=== PATIENT | male | born 1945 | race Hispanic/Latino ===

== ENCOUNTER → 2019-06-04 | Outpatient (CLI) | payer OTHER | END | disposition home or self-care (01) | LOC: RAH 13:17 | PROVIDERS: ATTEND Internal Medicine Cardiovascular Disease | DX: I80.202 Phlebitis and thrombophlebitis of unspecified deep vessels of left lower extremity (principal); M79.662 Pain in left lower leg; I48.0 Paroxysmal atrial fibrillation; I10 Essential (primary) hypertension; I42.0 Dilated cardiomyopathy; Z79.01 Long term (current) use of anticoagulants; Z79.899 Other long term (current) drug therapy | CPT/HCPCS: 93971 ==

== ENCOUNTER 2020-02-18 13:03 | Inpatient (IN) | payer OTHER ==
[~2020-02-18] VITALS: Ht 162.6 cm; Wt 90.8 kg
[2020-02-18] VITALS (13 sets, daily range): BP systolic 84–170; BP diastolic 25–90
[~2020-02-18 13:03] MED LIST: ATROPINE SULFATE 0.1 MG/ML 10 ML SYG IVP ONE; EPINEPHRINE 0.1 MG/ML 10 ML SYG IVP ONE; ETOMIDATE 2 MG/ML 10 ML VIAL IVP ONE; SODIUM BICARB 8.4% 50ML SYRINGE IVP ONE
[2020-02-18 13:45] LABS: BASOPHILS % (AUTO) 0.2 % (0.0-5.0); EOSINOPHILS % (AUTO) 0.4 % (0.0-8.0); LYMPHOCYTES % (AUTO) 14.1 % (21.0-51.0); MEAN CORPUSCULAR HEMOGLOBIN 29.4 pg (27.0-33.0); MEAN CORPUSCULAR HGB CONC 29.3 g/dL (32.0-36.0); MEAN CORPUSCULAR VOLUME 100.6 fL (79-99); MONOCYTES % (AUTO) 10.2 % (3.0-13.0); NEUTROPHILS % (AUTO) 66.7 % (40.0-77.0); NUCLEATED RED BLOOD CELLS 20.6 % (0.0-0.19); PLATELET COUNT (AUTO) 278 K/uL (130-400); RED BLOOD CELL COUNT(AUTO) 1.63 MIL/uL (4.50-6.20); RED CELL DISTRIBUTION WIDTH 19.1 % (11.0-15.5); WHITE BLOOD COUNT (AUTO) 21.4 K/uL (4.8-10.8)
[2020-02-18] MEDS ORDERED: ZOSYN 3.375GM+NS 50ML 50 ML IV ONE ×2 (13:47→20:19)
[2020-02-18 13:56] LABS: HEMATOCRIT 16.4 % (42-54)
[2020-02-18 13:59] LABS: PARTIAL THROMBOPLASTIN TIME 64.4 SEC (26.3-35.5)
[2020-02-18] MEDS ORDERED: ALBUMIN (HUMAN) 25% 100 ML IV ONE (13:59)
[2020-02-18 14:07] LABS: ALBUMIN 2.5 g/dL (3.5-5.0); BILIRUBIN,TOTAL 1.5 mg/dL (0.2-1.0); CREATININE 3.4 mg/dL (0.5-1.5); POTASSIUM 4.6 mmol/L (3.5-5.1); TOTAL PROTEIN, SERUM 6.9 g/dL (6.0-8.3); TROPONIN I 0.38 ng/mL (0.00-0.06)
[2020-02-18 14:15] LABS: INR > 7.00 (0.85-1.15); PROTHROMBIN TIME > 63.0 SEC (9.6-11.6)
[2020-02-18] MEDS ORDERED: CALCIUM GLUCONATE 1 GM/10 ML VIAL IV ONE (14:15)
[2020-02-18] MEDS ORDERED: SODIUM CHLORIDE 0.9% 100 ML IV ONE (14:20)
[2020-02-18] MEDS ORDERED: PHYTONADIONE 10 MG/1 ML AMP ONE ×3 (14:25→22:54)
[2020-02-18 14:50] LABS: LYMPHOCYTES % (MANUAL) 15 % (22-44); MONOCYTES % (MANUAL) 8 % (2-9); SEGMENTED NEUTROPHILS % 77 % (40-70)
[2020-02-18 14:51] LABS: MAN.DIFF COMMENT-IMPRESSION MANUAL DIFFERENTIAL; PLATELET MORPHOLOGY COMMENT ADEQUATE
[2020-02-18] MEDS ORDERED: METOPROLOL TARTRATE 1 MG/ML 5ML VIAL IV ONE (14:58)
[2020-02-18] MEDS: SODIUM CHLORIDE 0.9% 1000ML 1,000 ML IV SCH (15:15)
[2020-02-18 15:23] LABS: APPEARANCE,URINE Turbid (CLEAR); BILIRUBIN,URINE Negative (NEGATIVE); COLOR,URINE Dark Yellow (YELLOW); GLUCOSE, URINE (UA) TRACE mg/dL (NEGATIVE); KETONES,URINE Trace mg/dL (NEGATIVE); LEUKOCYTE ESTERASE ,URINE Small (NEGATIVE); NITRATE,URINE Negative (NEGATIVE); OCCULT BLOOD,URINE Small (NEGATIVE); PROTEIN,URINE POS 2+ mg/dL (NEGATIVE)
[2020-02-18 15:32] LABS: BACTERIA,URINE Moderate /HPF (None Seen); MUCUS,URINE Few LPF (None Seen); SPERM,URINE Few /HPF (None Seen); SQUAMOUS EPITHELIAL CELL,UR Moderate /HPF (0-2); TRANSITIONAL EPI CELLS,URINE Few /HPF (None Seen)
[2020-02-18] MEDS ORDERED: PANTOPRAZOLE 40 MG/VIAL IVP SCH (16:00)
[2020-02-18] MEDS ORDERED: FUROSEMIDE 10 MG/ML 4ML VIAL ONE (18:24)
[2020-02-18] MEDS ORDERED: FURO40TA5 PO (19:06)
[2020-02-18] MEDS ORDERED: LISI-617 PO (19:06)
[2020-02-18] MEDS ORDERED: WARF-57 PO (19:06)
[2020-02-18] MEDS ORDERED: GLIP5POW MC (19:06)
[2020-02-18] MEDS ORDERED: IBUP-2077 PO (19:06)
[2020-02-18] MEDS ORDERED: WARF2.5T85 PO (19:06)
[2020-02-18] MEDS ORDERED: METO-391 PO (19:06)
--- NOTE | 2020-02-18 19:30 | NUR ---
STATUS PT ASSESSED HE IS RESTLESS WITH LABORED BREATHING ENCOURAGED TO TAKE SLOW DEEP BREATHS. PT WAS GIVEN LASIX POST 2 UNITS PRBC. PENDING MORE BLOOD PRODUCTS. O2 SAT 98-100% ON 4LPM NASAL CANNULA SEE ASSESSMENT
--- NOTE | 2020-02-18 20:40 | NUR ---
DR. CASTILLO CHONG PAGED AT THIS TIME DUE TO INCREASED SHORTNESS OF BREATH AND RESTLESSNESS.
[2020-02-18] MEDS ORDERED: FUROSEMIDE 10 MG/ML 4ML VIAL IVP ONE (21:00)
--- NOTE | 2020-02-18 21:20 | NUR ---
DR. CASTILLO CHONG PAGED AGAIN PENDING CALL BACK.
--- NOTE | 2020-02-18 21:40 | NUR ---
DR. CASTILLO CHONG RETURNED CALL NEW ORDERS RECEIVED FOR BIPAP AND ABG. WILL CONTINUE TO MONITOR.
[2020-02-18] MEDS ORDERED: FUROSEMIDE 10 MG/ML 4ML VIAL IV PRN (21:45)
[2020-02-18 21:55] LABS: ABG BASE EXCESS -26.9 mmol/L (-2.0-3.0); ABG HCO3 4.8 mmol/L (21.0-28.0); ABG OXYGEN SATURATION 94.9 % (95.0-99.0); ABG PCO2 24 mmHg (35-48)
--- NOTE | 2020-02-18 22:00 | NUR ---
ABG RESULTS DR. CHONG CALLED AND GIVEN ABG RESULTS AT THIS TIME. NEW ORDERS RECEIVED FOR CRITICAL CARE CONSULT. PLACED ON BIPAP AT THIS TIME.
--- NOTE | 2020-02-18 22:10 | NUR ---
[facility] PAGED FOR CONSULT PENDING CALL BACK
--- NOTE | 2020-02-18 22:25 | NUR ---
CRITICAL CARE CRITICAL CARE PAGED AGAIN AT THIS TIME FOR CONSULT
[2020-02-18] MEDS ORDERED: NOREPINEPHRINE 4MG/NS 250ML 250 ML IV ONE (22:35)
[2020-02-18] MEDS ORDERED: SODIUM BICARB 50MEQ 50ML VIAL ONE (22:35)
[2020-02-18] MEDS ORDERED: FENTANYL 1000MCG+NS 100ML 100 ML ONE (22:35)
--- NOTE | 2020-02-18 22:35 | NUR ---
BETHANIE SOTO PRINT AND PATTERN DESIGNER CALLED NOTIFIED OF CONSULT AND GIVEN BREIF HISTORY AND LAB RESULTS. NEW ORDERS RECEIVED FOR ER TO INTUBATE AND MEDICATIONS TO BE ADMINISTERED SEE ORDERS.
--- NOTE | 2020-02-18 22:53 | NUR ---
ER DR. JHAVERI AT BEDSIDE FOR INTUBATION
[2020-02-18] MEDS ORDERED: OCTREOTIDE ACETATE 200 MCG/ML 5 ML VIAL ONE (22:55)
--- NOTE | 2020-02-18 22:57 | NUR ---
INTUBATION DURING INTUBATION ATTEMPT PT BECAME BRADYCARDIC 40'S AND GIVEN 0.5 MG ATROPINE. PT CONTINUED TO HAVE BRADYCARDIA 20-30'S GIVEN 1 AMP OF EPINEPHRINE. 2258- NO PULSE PT IN [facility] CPR STARTED AND CODE BLUE CALLED SEE CODE SHEET. 2301-PULSE 84. CODE WAS CLEARED AT 2307.
[2020-02-18] MEDS ORDERED: LACTATED RINGERS 1000ML 1,000 ML IV ONE (23:35)
--- NOTE | 2020-02-18 23:45 | NUR ---
FAMILY ATTEMPTED TO CALL FAMILY FROM PHONE NUMBER ON FACE SHEET GOES STRAIGHT TO VOICEMAIL AND MAIL BOX IS NOT SET UP
[2020-02-18] MEDS ORDERED: VASOPRESSIN 20 UNITS/ML 1ML VIAL ONE (23:46)
[2020-02-19] VITALS (65 sets, daily range): BP systolic 80–141; BP diastolic 12–80
[2020-02-19 00:20] LABS: ALBUMIN 3.3 g/dL (3.5-5.0); BILIRUBIN,TOTAL 2.9 mg/dL (0.2-1.0); CREATININE 4.2 mg/dL (0.5-1.5); INR 2.2 (0.85-1.15); PARTIAL THROMBOPLASTIN TIME 34.7 SEC (26.3-35.5); POTASSIUM 5.8 mmol/L (3.5-5.1); TOTAL PROTEIN, SERUM 7.4 g/dL (6.0-8.3)
[2020-02-19 00:21] LABS: CORRECTED WHITE BLOOD COUNT 20.5 K/uL (4.5-11.0); HEMATOCRIT 21.2 % (42-54); MEAN CORPUSCULAR HEMOGLOBIN 29.4 pg (27.0-33.0); MEAN CORPUSCULAR HGB CONC 29.2 g/dL (32.0-36.0); MEAN CORPUSCULAR VOLUME 100.5 fL (79-99); NUCLEATED RED BLOOD CELLS 39.2 % (0.0-0.19); RED BLOOD CELL COUNT(AUTO) 2.11 MIL/uL (4.50-6.20); RED CELL DISTRIBUTION WIDTH 19.5 % (11.0-15.5); WHITE BLOOD COUNT (AUTO) 28.5 K/uL (4.8-10.8)
[2020-02-19 00:22] LABS: ABG BASE EXCESS -24.2 mmol/L (-2.0-3.0); ABG HCO3 6.4 mmol/L (21.0-28.0); ABG OXYGEN SATURATION 99.3 % (95.0-99.0); ABG PCO2 28 mmHg (35-48)
[2020-02-19] MEDS ORDERED: SODIUM CHLORIDE 0.9% 500ML 500 ML IV ONE (00:42)
[2020-02-19] MEDS ORDERED: DEXTROSE 5%-WATER 1,000 ML IV ONE (01:14)
[2020-02-19] MEDS ORDERED: SODIUM BICARB 50MEQ 50ML VIAL ONE ×3 (01:14→04:53)
[2020-02-19] MEDS ORDERED: SODIUM BICARB 50MEQ 50ML VIAL IV ONE ×2 (01:15→04:45)
[2020-02-19] MEDS: SODIUM BICARB 8.4% 50ML SYRING 150 MEQ in DEXTROSE 5%-WATER 1,000 ML IV SCH ×5 (01:15→18:16)
[2020-02-19] MEDS: ZOSYN 3.375GM+NS 50ML 50 ML IV SCH ×2 (02:08→13:35)
[2020-02-19] MEDS: SODIUM CHLORIDE 0.9% 1000ML 1,000 ML IV SCH (03:01)
[2020-02-19 03:47] LABS: CORRECTED WHITE BLOOD COUNT 22.1 K/uL (4.5-11.0); HEMATOCRIT 30.8 % (42-54); MEAN CORPUSCULAR HEMOGLOBIN 30.7 pg (27.0-33.0); MEAN CORPUSCULAR HGB CONC 31.2 g/dL (32.0-36.0); MEAN CORPUSCULAR VOLUME 98.4 fL (79-99); NUCLEATED RED BLOOD CELLS 35.3 % (0.0-0.19); RED BLOOD CELL COUNT(AUTO) 3.13 MIL/uL (4.50-6.20); WHITE BLOOD COUNT (AUTO) 29.9 K/uL (4.8-10.8)
[2020-02-19 04:02] LABS: INR 2.48 (0.85-1.15); PROTHROMBIN TIME 25.9 SEC (9.6-11.6)
[2020-02-19 04:21] LABS: BILIRUBIN,TOTAL 4.3 mg/dL (0.2-1.0); CREATININE 4.2 mg/dL (0.5-1.5); TOTAL PROTEIN, SERUM 6.8 g/dL (6.0-8.3)
[2020-02-19] MEDS: INSULIN HUMULIN R 100 UNIT/ML 3ML IV SCH (04:45)
[2020-02-19] MEDS: CALCIUM GLUCONATE 1 GM/10 ML VIAL IV SCH (04:45)
[2020-02-19] MEDS: DEXTROSE 50%-WATER 25 GM/50 ML VIAL IV SCH (04:45)
[2020-02-19] MEDS ORDERED: INSULIN HUMULIN R 100 UNIT/ML 3ML ONE (04:51)
[2020-02-19] MEDS ORDERED: CALCIUM GLUCONATE 1 GM/10 ML VIAL IV ONE (04:51)
[2020-02-19] MEDS ORDERED: DEXTROSE 50%-WATER 25 GM/50 ML VIAL ONE (04:51)
[2020-02-19] MEDS ORDERED: FENTANYL CITRATE PF 0.05 MG/ML 1,000 MCG in SODIUM CHLORIDE 0.9% 100 ML IVPB SCH (07:30)
--- NOTE | 2020-02-19 07:45 | NUR ---
Family SPOKE WITH IVANIA PT NIECE UPDATED ON OVER NIGHT EVENTS.
[2020-02-19 07:52] LABS: ABG BASE EXCESS -14.6 mmol/L (-2.0-3.0); ABG HCO3 11.2 mmol/L (21.0-28.0); ABG OXYGEN SATURATION 97.9 % (95.0-99.0); ABG PCO2 27 mmHg (35-48)
[2020-02-19] MEDS ORDERED: CALCIUM GLUCONATE 1 GM in SODIUM CHLORIDE 0.9% 50 ML IV SCH (08:00)
[2020-02-19] MEDS: PANTOPRAZOLE 40 MG/VIAL IVP SCH ×4 (08:11→21:28)
[2020-02-19 08:20] LABS: CORRECTED WHITE BLOOD COUNT 21.1 K/uL (4.5-11.0); HEMATOCRIT 29.4 % (42-54); MEAN CORPUSCULAR HEMOGLOBIN 30.6 pg (27.0-33.0); MEAN CORPUSCULAR HGB CONC 32.3 g/dL (32.0-36.0); MEAN CORPUSCULAR VOLUME 94.8 fL (79-99); NUCLEATED RED BLOOD CELLS 39.4 % (0.0-0.19); RED BLOOD CELL COUNT(AUTO) 3.1 MIL/uL (4.50-6.20); WHITE BLOOD COUNT (AUTO) 29.4 K/uL (4.8-10.8)
[2020-02-19] MEDS: MIDAZOLAM 50MG-0.9% NS 50ML 50 ML BAG IV SCH (08:25)
[2020-02-19 08:37] LABS: INR 2.66 (0.85-1.15); PARTIAL THROMBOPLASTIN TIME 30.8 SEC (26.3-35.5); PROTHROMBIN TIME 27.7 SEC (9.6-11.6)
[2020-02-19 08:45] LABS: CREATININE 4.4 mg/dL (0.5-1.5); MAGNESIUM 2.5 mg/dL (1.80-2.40); POTASSIUM 4.8 mmol/L (3.5-5.1)
[2020-02-19] MEDS: NOREPINEPHRINE 4MG/NS 250ML 250 ML IV SCH ×2 (09:32→13:36)
[2020-02-19] MEDS: FENTANYL 1000MCG+NS 100ML IV.SOLN IV SCH (09:33)
[2020-02-19] MEDS: OCTREOTIDE ACETATE 500 MCG in SODIUM CHLORIDE 0.9% 97.5 ML IV SCH (09:34)
[2020-02-19] MEDS: SODIUM CHLORIDE 0.9% IV SCH (09:36)
[2020-02-19] MEDS: VASOPRESSIN IV SCH (09:36)
[2020-02-19] MEDS: DIGOXIN 250 MCG/ML 2ML AMP IV SCH ×3 (10:30→20:44)
--- NOTE | 2020-02-19 13:00 | NUR ---
DR. SON CLINE AND ENID HAWK AT BEDSIDE TO SEE AND EVALUATE PATIENT. ORDERS FOR 2U OF FFP GIVEN AND PICC LINE INSERTION. ORDERS ENTERED INTO THE SYSTEM.
--- NOTE | 2020-02-19 13:00 | NUR ---
BEDSIDE ROUNDS DR. CLINE AT BEDSIDE. NOTIFIED OF NEED FOR CENTRAL LINE. VASOPRESSORS CURRENTLY RUNNING THROUGH 18G PERIPHERAL IV, WITHOUT ANY ISSUES. FFP WILL BE INFUSED BEFORE CENTRAL LINE IS PLACED.
[2020-02-19 14:14] LABS: HEMATOCRIT 29.9 % (42-54)
--- NOTE | 2020-02-19 14:45 | NUR ---
TRIALYSIS CATHETER DR. CLINE INSERTED RIGHT FEMORAL TRIALYSIS CATHETER AT 1445.
[2020-02-19] MEDS ORDERED: HEPARIN SODIUM 5000UNIT/ML 1ML VIAL ONE (14:55)
--- NOTE | 2020-02-19 14:57 | NUR ---
DCP CM called spouse Kay [phone], no answer at this time. Obtained info through previous admission. Pt is independent, lives at home w/spouse. Has a walker. Will reassess once pt more stable. For now dcp to home. CM to cont to follow up. Addendum: 02/19/20 at 1458 by DEEPTHI LEWIS LVN CM Amended: Links added.
--- NOTE | 2020-02-19 15:50 | NUR ---
DR. GLADYS AMARAL NOTIFIED OF CONSULTATION. GAVE ORDERS FOR DIGOXIN 0.5 X1 DOSE, 0.25 IN 4HRS, AND 0.25 4 HRS THEREAFTER. STATED, OTHERWISE NOT MUCH HE IS ABLE TO DO AT THIS POINT.
--- NOTE | 2020-02-19 15:55 | NUR ---
DR. ROSLYN MCGOWAN AWARE OF CONSULTATION. STATED PATIENT IS NOT A CANDIDATE FOR DIALYSIS AT THIS TIME, CONSIDERING THE AMOUNT OF PRESSORS HE IS REQUIRING. ORDERED CBC, CMP, PHOS, MAG, UA. ALL ORDERS ENTERED INTO SYSTEM.
[2020-02-19] MEDS ORDERED: DIGOXIN 250 MCG/ML 2ML AMP IV SCH (16:30)
[2020-02-19] MEDS ORDERED: PHARMACY COMMUNICATION MISC SCH (16:30)
[2020-02-19] MEDS ORDERED: AMIODARONE HCL 150 MG in DEXTROSE 5%-WATER 100 ML IV SCH ×4 (18:45)
[2020-02-19] MEDS: AMIODARONE HCL 360 MG in DEXTROSE 5%-WATER 200 ML IV SCH (19:17)
[2020-02-19 20:24] LABS: CHLORIDE,URINE RANDOM 129 mmol/L (110-250); CREATININE,URINE RANDOM 18 mg/dL (30-135); POTASSIUM,URINE RANDOM < 9 mmol/L (25-125); SODIUM,URINE RANDOM 141 mmol/l (40-220)
[2020-02-19 20:30] LABS: APPEARANCE,URINE TURBID (CLEAR); BILIRUBIN,URINE MODERATE (NEGATIVE); COLOR,URINE RED (YELLOW); GLUCOSE, URINE (UA) NEGATIVE (NEGATIVE); KETONES,URINE NEGATIVE (NEGATIVE); LEUKOCYTE ESTERASE ,URINE TRACE (NEGATIVE); NITRATE,URINE NEGATIVE (NEGATIVE); OCCULT BLOOD,URINE LARGE (NEGATIVE); PH,URINE 6.5 (5.0-8.0); PROTEIN,URINE >=300 mg/dL (NEGATIVE); UROBILINOGEN,URINE 0.2 mg/dL (0.2-1.0)
[2020-02-19 20:56] LABS: BACTERIA,URINE Rare /HPF (None Seen); RBC,URINE TNTC /HPF (0-1); SQUAMOUS EPITHELIAL CELL,UR None Seen /HPF (0-2)
[2020-02-19 21:58] LABS: HEMATOCRIT 29.3 % (42-54)
[2020-02-20] VITALS (60 sets, daily range): BP systolic 91–135; BP diastolic 44–77
[2020-02-20] MEDS ORDERED: AMIODARONE HCL 450 MG in DEXTROSE 5%-WATER 250 ML IV SCH (00:45)
[2020-02-20] MEDS: DIGOXIN 250 MCG/ML 2ML AMP IV SCH (01:14)
[2020-02-20] MEDS: ZOSYN 3.375GM+NS 50ML 50 ML IV SCH ×2 (01:14→13:06)
[2020-02-20] MEDS: CALCIUM GLUCONATE 1 GM/10 ML VIAL IV SCH (01:48)
[2020-02-20] MEDS: INSULIN HUMULIN R 100 UNIT/ML 3ML IV SCH ×2 (01:49→01:58)
[2020-02-20] MEDS: DEXTROSE 50%-WATER 25 GM/50 ML VIAL IV SCH (01:49)
[2020-02-20] MEDS: NOREPINEPHRINE BITARTRATE 32 MG in SODIUM CHLORIDE 0.9% 250 ML IV SCH ×3 (02:28→21:52)
[2020-02-20] MEDS: MIDAZOLAM 50MG-0.9% NS 50ML 50 ML BAG IV SCH (04:04)
[2020-02-20] MEDS: AMIODARONE HCL 360 MG in DEXTROSE 5%-WATER 200 ML IV SCH ×2 (04:05→15:28)
[2020-02-20 05:06] LABS: BASOPHILS % (AUTO) 0.3 % (0.0-5.0); EOSINOPHILS % (AUTO) 0.2 % (0.0-8.0); HEMATOCRIT 28.7 % (42-54); LYMPHOCYTES % (AUTO) 5.2 % (21.0-51.0); MEAN CORPUSCULAR HEMOGLOBIN 29.7 pg (27.0-33.0); MEAN CORPUSCULAR HGB CONC 32.4 g/dL (32.0-36.0); MEAN CORPUSCULAR VOLUME 91.7 fL (79-99); MONOCYTES % (AUTO) 4.8 % (3.0-13.0); NEUTROPHILS % (AUTO) 86.1 % (40.0-77.0); NUCLEATED RED BLOOD CELLS 41.2 % (0.0-0.19); PLATELET COUNT (AUTO) 213 K/uL (130-400); RED BLOOD CELL COUNT(AUTO) 3.13 MIL/uL (4.50-6.20); RED CELL DISTRIBUTION WIDTH 19.4 % (11.0-15.5); WHITE BLOOD COUNT (AUTO) 19.6 K/uL (4.8-10.8)
[2020-02-20 05:24] LABS: INR 1.84 (0.85-1.15); PARTIAL THROMBOPLASTIN TIME 30.2 SEC (26.3-35.5); PROTHROMBIN TIME 19.4 SEC (9.6-11.6)
[2020-02-20 05:52] LABS: BAND NEUTROPHILS % (MANUAL) 2 % (0-2); LYMPHOCYTES % (MANUAL) 5 % (22-44); MAN.DIFF COMMENT-IMPRESSION MANUAL DIFFERENTIAL; MONOCYTES % (MANUAL) 5 % (2-9); SEGMENTED NEUTROPHILS % 88 % (40-70)
[2020-02-20 05:53] LABS: ALBUMIN 2.8 g/dL (3.5-5.0); BILIRUBIN,DIRECT 2.8 mg/dL (0.0-0.3); BILIRUBIN,TOTAL 4.2 mg/dL (0.2-1.0); CREATININE 5.2 mg/dL (0.5-1.5); MAGNESIUM 2.3 mg/dL (1.80-2.40); PHOSPHORUS 6.3 mg/dL (2.5-4.9); POTASSIUM 4.2 mmol/L (3.5-5.1); TOTAL PROTEIN, SERUM 6.4 g/dL (6.0-8.3)
[2020-02-20] MEDS ORDERED: INSULIN HUMULIN R 100 UNIT/ML 3ML SQ SCH (06:00)
[2020-02-20 06:57] LABS: ABG BASE EXCESS 1.3 mmol/L (-2.0-3.0); ABG HCO3 24.6 mmol/L (21.0-28.0); ABG OXYGEN SATURATION 93.8 % (95.0-99.0); ABG PCO2 35 mmHg (35-48)
[2020-02-20] MEDS: VASOPRESSIN IV SCH (06:59)
[2020-02-20] MEDS: SODIUM CHLORIDE 0.9% IV SCH (06:59)
[2020-02-20] MEDS: PANTOPRAZOLE 40 MG/VIAL IVP SCH ×3 (09:00→22:04)
[2020-02-20 09:31] LABS: HEMATOCRIT 28.9 % (42-54)
[2020-02-20] MEDS: AMIODARONE HCL 200 MG TABLET PO SCH ×2 (09:41→22:05)
[2020-02-20] MEDS: SODIUM BICARB 8.4% 50ML SYRING 150 MEQ in DEXTROSE 5%-WATER 1,000 ML IV SCH (09:42)
[2020-02-20] MEDS: OCTREOTIDE ACETATE 500 MCG in SODIUM CHLORIDE 0.9% 97.5 ML IV SCH (09:42)
[2020-02-20] MEDS: FENTANYL 1000MCG+NS 100ML IV.SOLN IV SCH (09:45)
[2020-02-20 10:55] LABS: HEMATOCRIT 28.9 % (42-54)
[2020-02-20 11:12] LABS: ALBUMIN 2.7 g/dL (3.5-5.0); CREATININE 5.2 mg/dL (0.5-1.5)
--- NOTE | 2020-02-20 11:19 | NUR ---
AMIODARONE BOLUS DR. ZULUAGA MADE AWARE PATIENT'S HEART RATE STILL CONSISTENTLY ABOVE 110. HE GAVE AN ORDER FOR AMIO BOLUS TO BE GIVEN AND TO NOTIFY HIM IF HEART RATE CONTINUES ABOVE 110.
[2020-02-20 11:28] LABS: HEMOGLOBIN A1C 7.2 % (4.0-6.0)
[2020-02-20] MEDS ORDERED: AMIODARONE HCL 150 MG in DEXTROSE 5%-WATER 100 ML IV SCH ×2 (11:30→18:00)
[2020-02-20] MEDS: INSULIN HUMULIN R 100 UNIT/ML 3ML SQ SCH ×2 (13:09→22:19)
[2020-02-20 13:47] LABS: HEMATOCRIT 28.7 % (42-54)
[2020-02-20] MEDS ORDERED: ALBUMIN (HUMAN) 25% 200 ML IV ONE (16:16)
--- NOTE | 2020-02-20 16:53 | NUR ---
AMIO BOLUS DR. ZULUAGA MADE AWARE OF PATIENT'S HEART RATE. HE STATED TO GIVE ANOTHER BOLUS OF AMIODARNE NOW, AND ANOTHER IN 1HR. HE STATED TO CONTINUE DRIP AT 0.5MG/MIN AN ADDITIONAL 12HRS [id number], 02/21/2020).
[2020-02-20] MEDS ORDERED: AMIODARONE HCL 150 MG in DEXTROSE 5%-WATER 100 ML IV STA ×2 (17:07→19:18)
[2020-02-20] MEDS ORDERED: HEPARIN SODIUM 5000UNIT/ML 1ML VIAL IJ PRN (17:45)
[2020-02-20] MEDS ORDERED: SODIUM CHLORIDE 0.9% 1000ML 1,000 ML IV PRN (17:45)
[2020-02-20] MEDS ORDERED: 0.9% SODIUM CHLORIDE 1000 ML IV BAG IV PRN (17:45)
[2020-02-20] MEDS ORDERED: NITROGLYCERIN 0.4 MG SL TAB SL PRN (17:45)
[2020-02-20] MEDS ORDERED: INSULIN GLARGINE 100 UNITS/ML 10 ML VIAL SQ SCH (21:00)
[2020-02-21] VITALS (24 sets, daily range): BP systolic 40–123; BP diastolic 23–99
[2020-02-21] MEDS: MIDAZOLAM 50MG-0.9% NS 50ML 50 ML BAG IV SCH (00:08)
[2020-02-21] MEDS: ZOSYN 3.375GM+NS 50ML 50 ML IV SCH (01:32)
[2020-02-21] MEDS: DEXTROSE 50%-WATER 25 GM/50 ML VIAL IV SCH (01:34)
[2020-02-21] MEDS: INSULIN HUMULIN R 100 UNIT/ML 3ML IV SCH (01:35)
[2020-02-21] MEDS: CALCIUM GLUCONATE 1 GM/10 ML VIAL IV SCH (01:36)
[2020-02-21 01:48] LABS: ABG BASE EXCESS -12.9 mmol/L (-2.0-3.0); ABG HCO3 14.2 mmol/L (21.0-28.0); ABG OXYGEN SATURATION 93.5 % (95.0-99.0); ABG PCO2 37 mmHg (35-48)
[2020-02-21] MEDS ORDERED: LACTATED RINGERS 1000ML 1,000 ML IV ONE (01:54)
[2020-02-21] MEDS ORDERED: SODIUM BICARB 50MEQ 50ML VIAL ONE ×3 (01:55→05:26)
[2020-02-21] MEDS ORDERED: SODIUM BICARB 50MEQ 50ML VIAL IV STA ×2 (02:05→05:23)
[2020-02-21] MEDS ORDERED: PHENYLEPHRINE HCL 50 MG in SODIUM CHLORIDE 0.9% 250 ML IV PRN (02:15)
[2020-02-21] MEDS ORDERED: PHARMACY COMMUNICATION MISC SCH (02:15)
[2020-02-21] MEDS ORDERED: LACTATED RINGERS 1000ML IV SCH (02:15)
[2020-02-21] MEDS ORDERED: CALCIUM GLUCONATE 1 GM/10 ML VIAL IV SCH (02:15)
[2020-02-21] MEDS: SODIUM BICARB 8.4% 50ML SYRING 150 MEQ in DEXTROSE 5%-WATER 1,000 ML IV SCH (02:37)
--- NOTE | 2020-02-21 02:40 | NUR ---
0118 Call placed to [facility] to report decrease in bp, O2 sat necessitating increasing Levophed drip, Fi02 to 100%. 0140 ABG plus drawn. 0150 Spoke with Nate NAIR (geospatial information technologist for [facility]). Full report given, ABG results given. Orders received and carried out.
[2020-02-21] MEDS ORDERED: PHENYLEPHRINE HCL 10 MG/ML 1ML VIAL IV ONE (02:52)
[2020-02-21 04:24] LABS: BASOPHILS % (AUTO) 0.4 % (0.0-5.0); EOSINOPHILS % (AUTO) 0.1 % (0.0-8.0); HEMATOCRIT 28.5 % (42-54); LYMPHOCYTES % (AUTO) 10.1 % (21.0-51.0); MEAN CORPUSCULAR HEMOGLOBIN 30.4 pg (27.0-33.0); MEAN CORPUSCULAR HGB CONC 29.8 g/dL (32.0-36.0); MEAN CORPUSCULAR VOLUME 101.8 fL (79-99); MONOCYTES % (AUTO) 3.7 % (3.0-13.0); NEUTROPHILS % (AUTO) 80.2 % (40.0-77.0); NUCLEATED RED BLOOD CELLS 36.7 % (0.0-0.19); PLATELET COUNT (AUTO) 164 K/uL (130-400); RED CELL DISTRIBUTION WIDTH 20.6 % (11.0-15.5); WHITE BLOOD COUNT (AUTO) 17.1 K/uL (4.8-10.8)
[2020-02-21 04:37] LABS: INR 2.06 (0.85-1.15); PARTIAL THROMBOPLASTIN TIME 32.5 SEC (26.3-35.5); PROTHROMBIN TIME 21.6 SEC (9.6-11.6)
[2020-02-21 04:48] LABS: ALBUMIN 3.2 g/dL (3.5-5.0); BILIRUBIN,DIRECT 3.9 mg/dL (0.0-0.3); BILIRUBIN,TOTAL 5.3 mg/dL (0.2-1.0); CREATININE 4.7 mg/dL (0.5-1.5); MAGNESIUM 2.4 mg/dL (1.80-2.40); PHOSPHORUS 8.2 mg/dL (2.5-4.9); POTASSIUM 5.1 mmol/L (3.5-5.1); THYROID STIMULATING HORMONE 0.89 uIU/mL (0.36-3.74); TOTAL PROTEIN, SERUM 6.4 g/dL (6.0-8.3)
[2020-02-21 04:49] LABS: B-TYPE NATRIURETIC PEPTIDE > 5000 pg/mL (0-100)
[2020-02-21 05:14] LABS: ABG BASE EXCESS -17.9 mmol/L (-2.0-3.0); ABG HCO3 10.9 mmol/L (21.0-28.0); ABG OXYGEN SATURATION 90.4 % (95.0-99.0); ABG PCO2 38 mmHg (35-48)
[2020-02-21] MEDS: AMIODARONE HCL 360 MG in DEXTROSE 5%-WATER 200 ML IV SCH (05:52)
[2020-02-21] MEDS: INSULIN HUMULIN R 100 UNIT/ML 3ML SQ SCH (06:17)
--- NOTE | 2020-02-21 06:18 | NUR ---
0517 TC to [facility] (Nate Martinez). Reported decrease in bp, neosynephrine drip started, abg results, lab results. Orders received and carried out.
--- NOTE | 2020-02-21 07:13 | NUR ---
Care of patient endorsed to Hao Baires RN. Status unchanged. Dr Wilson here to see patient. Full report given
[2020-02-21 07:24] LABS: ABG BASE EXCESS -16.7 mmol/L (-2.0-3.0); ABG HCO3 11.6 mmol/L (21.0-28.0); ABG OXYGEN SATURATION 93.6 % (95.0-99.0); ABG PCO2 37 mmHg (35-48)
--- NOTE | 2020-02-21 07:30 | NUR ---
PT'S SEDATION WAS STOPPED A SEDATION VACATION, WILL MONITOR PT'S RESPONSE.
[2020-02-21 08:10] LABS: HEPATITIS Bs ANTIGEN SCREEN P Negative (Negative)
[2020-02-21] MEDS: OCTREOTIDE ACETATE 500 MCG in SODIUM CHLORIDE 0.9% 97.5 ML IV SCH (08:11)
[2020-02-21] MEDS: NOREPINEPHRINE BITARTRATE 32 MG in SODIUM CHLORIDE 0.9% 250 ML IV SCH (08:16)
--- NOTE | 2020-02-21 08:25 | NUR ---
DR. MCGOWAN HERE AND ADVISED OF PT'S PRESENT STATUS AND V/S ON PRESSORS. NOTIFIED DIALYSIS NURSE EARLIER THAT PT WAS NOT STABLE FOR DIALYSIS, DR. MCGOWAN AGREED.
--- NOTE | 2020-02-21 10:00 | NUR ---
PT WAS AGAIN REASSESSED AND NO NEURO RESPONSE TO PAINFUL STIMULI PUPILS REMAIN 3 AND BRISK.
--- NOTE | 2020-02-21 10:00 | NUR ---
SPOKE WITH AND UNSURE THAT IS ABLE TO COMPREHEND WHAT WAS SAID TO HER CONCERNING PT'S RESENT STATUS. STATES THAT SHE HAD SPOKEN WITH HER SON AND WANTED EVERYTHING TO BE DONE ONLY IF THE CODE WAS PRIOR TO 12NOON DUE TO HER SON ON HIS WAY FROM [place] AND WOULD GET HERE AROUND NOON. PT'S NIECE STATES THAT SHE () DOESN'T ACKNOWLEDGE THE PROGNOSIS BEING GRIM, BUT WHEN SON GETS HERE A DECISION WOULD BE MADE. NIECE WAS ADVISED THAT PT WAS ALREADY BEING RESUSCITATED BECAUSE HE WAS ALREADY ON THE MEDICATIONS THAT WOULD BE GIVEN DURING A CODE AND ALREADY INTUBATED. NIECE WAS ADVISED THAT PT'S 'S WISHES WOULD BE HONORED.
--- NOTE | 2020-02-21 10:08 | NUR ---
PT'S AMIODARONE DRIP WAS STOPPED AFTER QRS WAVE WIDEN. WILL CONTINUE TO MONITOR PT'S V/S AND RHYTHM.
--- NOTE | 2020-02-21 10:32 | NUR ---
SPOKE WITH NIECE AND ADVISED HER THAT THE PATIENT WAS NOT DOING WELL AND THAT HIS PROGNOSIS DID NOT LOOK GOOD. NIECE IS GOING TO TAKE TO PATIENT'S SON AND AND WILL DECIDE ON DNR STATUS. DR. CHONG WAS ADVISED.
--- NOTE | 2020-02-21 10:36 | NUR ---
PT WAS TAKEN OFF SEDATION TO ASSESS NEURO STATUS AND WILL MONITOR NEURO STATUS.
--- NOTE | 2020-02-21 11:30 | NUR ---
DR. CHONG HERE AND ADVISED OF PT'S FAMILY REQUEST TO DO CPR UNTIL HIS SON WOULD ARRIVE. DR. CHONG WAS ADVISED OF FAMILY HERE IN THE ER AREA AND WOULD LIKE FOR HIM TO TALK TO THEM. FAMILY WAS ADVISED PER DR. CHONG TO JUST LET THE PATIENT GO AND NOT TO DO CPR, FAMILY AGREED. PT'S FAMILY WERE ADVISED TO SIGN PAPERWORK TO WITHDRAW AND DNR.
--- NOTE | 2020-02-21 11:50 | NUR ---
FAMILY SIGNED PAPERWORK AND WERE STILL AT THE BEDSIDE WHEN PT WENT INTO ASYSTOLE. SON AND WERE ADVISED OF HIS DEMISE AND WERE ALLOWED TO SAY THEIR GOODBYES. DR. CHONG WILL BE SIGNING CERTIFICATE AND WAS NOTIFIED OF TIME OF . DR. CLINE PRONOUNCED PT DUE TO PATIENT STILL ON VENTILATOR WHEN HE WENT INTO ASYSTOLE. TELESCOPE MAINTENANCE NOTIFIED OF THE PT'S AND TIME.
--- NOTE | 2020-02-21 11:55 | NUR ---
SHANTI HAS BEEN ADVISED OF PT'S DEMISS. Addendum: 02/21/20 at 1437 by ELLEN DIANA RN RN SHANTI WAS NOTIFIED AT 3691
== END 2020-02-21 11:50 | disposition expired | DRG 871 ==
LOC: EDH 13:03 → EDHIP 14:20 → DAHIP 16:58
PROVIDERS: ADMIT Family Medicine; ATTEND Family Medicine
PROC: 5A1945Z Respiratory Ventilation, 24-96 Consecutive Hours (ICD-10-PCS; principal; 2020-02-18)
PROC: 0BH17EZ Insertion of Endotracheal Airway into Trachea, Via Natural or Artificial Opening (ICD-10-PCS; 2020-02-18)
PROC: 5A1D70Z Performance of Urinary Filtration, Intermittent, Less than 6 Hours Per Day (ICD-10-PCS; 2020-02-20)
PROC: 06H033Z Insertion of Infusion Device into Inferior Vena Cava, Percutaneous Approach (ICD-10-PCS; 2020-02-20)
PROC: B549ZZA Ultrasonography of Inferior Vena Cava, Guidance (ICD-10-PCS; 2020-02-20)
PROC: 30233K1 Transfusion of Nonautologous Frozen Plasma into Peripheral Vein, Percutaneous Approach (ICD-10-PCS; 2020-02-21)
PROC: 30233N1 Transfusion of Nonautologous Red Blood Cells into Peripheral Vein, Percutaneous Approach (ICD-10-PCS; 2020-02-21)
DX: A41.9 Sepsis, unspecified organism (principal); R65.21 Severe sepsis with septic shock; I50.23 Acute on chronic systolic (congestive) heart failure; J96.00 Acute respiratory failure, unspecified whether with hypoxia or hypercapnia; K72.00 Acute and subacute hepatic failure without coma; E87.2 Acidosis; K92.2 Gastrointestinal hemorrhage, unspecified; I42.0 Dilated cardiomyopathy; N17.9 Acute kidney failure, unspecified; I13.0 Hypertensive heart and chronic kidney disease with heart failure and stage 1 through stage 4 chronic kidney disease, or unspecified chronic kidney disease; N39.0 Urinary tract infection, site not specified; T45.515A Adverse effect of anticoagulants, initial encounter; D64.9 Anemia, unspecified; I48.0 Paroxysmal atrial fibrillation; E11.22 Type 2 diabetes mellitus with diabetic chronic kidney disease; I07.1 Rheumatic tricuspid insufficiency; E87.5 Hyperkalemia; J44.9 Chronic obstructive pulmonary disease, unspecified; I25.10 Atherosclerotic heart disease of native coronary artery without angina pectoris; E78.5 Hyperlipidemia, unspecified; E66.01 Morbid (severe) obesity due to excess calories; N18.9 Chronic kidney disease, unspecified; R57.0 Cardiogenic shock; Z68.34 Body mass index [BMI] 34.0-34.9, adult; Z79.01 Long term (current) use of anticoagulants; Z79.4 Long term (current) use of insulin; Z88.8 Allergy status to other drugs, medicaments and biological substances; Y92.89 Other specified places as the place of occurrence of the external cause
CPT/HCPCS: 31500; 36415; 36430; 36569; 36600; 71045; 80048; 80053; 80061; 80076; 81001; 82040; 82140; 82247; 82248; 82435; 82436; 82550; 82565; 82570; 82728; 82803; 82947; 82948; 83036; 83540; 83550; 83605; 83735; 83874; 83880; 84100; 84132; 84133; 84145; 84295; 84300; 84443; 84480; 84484; 84520; 85014; 85018; 85025; 85027; 85610; 85730; 86701; 86704; 86706; 86850; 86900; 86901; 86922; 86927; 87040; 87071; 87088; 87205; 87340; 87390; 87520; 90935; 92950; 93005; 93306; 93356; 94002; 94003; 94660; A4344; C1751; C1894; C9113; G0378; J0171; J0282; J0461; J0610; J1160; J1644; J1815; J1940; J2354; J2370; J2543; J3010; J3430; J3490; J7030; J7040; J7050; J7060; J7070; J7120; P9016; P9017; P9046